=== PATIENT | male | born 1990 | race Caucasian/White ===

== ENCOUNTER 2017-05-28 15:51 | Emergency (ER) | payer OTHER ==
[~2017-05-28] VITALS: Ht 175.3 cm; Wt 84.5 kg
[~2017-05-28 15:51] MED LIST: ALBUAER19 INH; CLIN300C2 PO
[2017-05-28 15:57] VITALS: TEMP 36.8; Ht 175.3 cm; Wt 84.5 kg
[2017-05-28 16:10] VITALS: O2SAT 97
--- NOTE | 2017-05-28 16:15 | EMERGENCY ROOM VISIT NOTE ---
History First contact with patient: 16:00 Chief Complaint: CHEST PAIN Stated Complaint: DULL CHEST PAIN ACROSS ENTIRE CHEST History of Present Illness The patient is a 27 year old male who presents to the Emergency Room with complaints of midsternal chest pain that he describes as a dull, aching sensation that started approximately half hour prior to arrival. He describes it also as a pressure-like sensation. It is worse with deep inspiration. He denies any shortness of breath. No cough, fever or chills. The pain does not radiate anywhere. He has not experienced this pain before. He denies any diaphoresis. The patient does note that his father had a stent placed at a very young age. he denies any long travel. Review of Systems 10 system review performed and negative unless noted in HPI or below Past Medical/Surgical History Medical Problems: (1) No Known Active Medical Problems Family History Father-coronary artery disease Social History Smoking Status: Never Smoker Current/Historical Medications Scheduled Albuterol Hfa (Ventolin Hfa), 2-4 PUFFS INH Q6H Physical Exam Vital Signs Date Time Temp Pulse Resp B/P (MAP) Pulse Ox O2 Delivery O2 Flow Rate FiO2 05/28/17 19:41 76 16 124/78 98 05/28/17 18:51 71 17 05/28/17 18:29 125/76 05/28/17 18:06 71 9 05/28/17 18:00 74 16 125/76 99 Room Air 05/28/17 17:21 78 14 05/28/17 16:36 62 12 05/28/17 16:31 75 05/28/17 16:25 137/71 05/28/17 16:10 98 Room Air 05/28/17 16:10 97 Room Air 05/28/17 15:57 36.8 72 20 128/79 99 Room Air Physical Exam VITALS: Vitals are noted on the nurse's note and reviewed by myself. Vital signs stable. GENERAL: 27-year-old male, in no acute distress, nondiaphoretic, well-developed well-nourished. SKIN: The skin was without rashes, erythema, edema, or bruising. HEAD: Normocephalic atraumatic. NECK: Supple without nuchal rigidity. No JVD. HEART: Regular rate and rhythm without murmurs gallops or rubs. Tenderness to palpation over the mid sternum. LUNGS: Clear to auscultation bilaterally without wheezes, rales or rhonchi. No accessory muscle use. ABDOMEN: Positive bowel sounds x 4.Soft, nontender, without organomegaly. No guarding or rebound tenderness. MUSCULOSKELETAL: No muscle atrophy, erythema, or edema noted. Strength 5/5 throughout. NEURO: Patient was alert and oriented to person place and time. Normal sensation to touch. No focal neurological deficits. Medical Decision & Procedures ER Provider Diagnostic Interpretation: CXR: IMPRESSION: No acute cardiopulmonary process. Laboratory Results 05/28/17 16:30 Red Blood Count 5.04, Mean Corpuscular Volume 85.1, Mean Corpuscular Hemoglobin 30.0, Mean Corpuscular Hemoglobin Concent 35.2, Mean Platelet Volume 9.8, Neutrophils (%) (Auto) 67.6, Lymphocytes (%) (Auto) 19.6, Monocytes (%) (Auto) 9.6, Eosinophils (%) (Auto) 2.7, Basophils (%) (Auto) 0.1, Neutrophils # (Auto) 6.91, Lymphocytes # (Auto) 2.00, Monocytes # (Auto) 0.98, Eosinophils # (Auto) 0.28, Basophils # (Auto) 0.01 05/28/17 16:30 Test 05/28/17 16:30 05/28/17 18:30 White Blood Count 10.22 K/uL (4.8-10.8) Red Blood Count 5.04 M/uL (4.7-6.1) Hemoglobin 15.1 g/dL (14.0-18.0) Hematocrit 42.9 % (42-52) Mean Corpuscular Volume 85.1 fL (80-100) Mean Corpuscular Hemoglobin 30.0 pg (25-34) Mean Corpuscular Hemoglobin Concent 35.2 g/dl (32-36) Platelet Count 249 K/uL (130-400) Mean Platelet Volume 9.8 fL (7.4-10.4) Neutrophils (%) (Auto) 67.6 % Lymphocytes (%) (Auto) 19.6 % Monocytes (%) (Auto) 9.6 % Eosinophils (%) (Auto) 2.7 % Basophils (%) (Auto) 0.1 % Neutrophils # (Auto) 6.91 K/uL (1.4-6.5) Lymphocytes # (Auto) 2.00 K/uL (1.2-3.4) Monocytes # (Auto) 0.98 K/uL (0.11-0.59) Eosinophils # (Auto) 0.28 K/uL (0-0.5) Basophils # (Auto) 0.01 K/uL (0-0.2) RDW Standard Deviation 39.0 fL (36.4-46.3) RDW Coefficient of Variation 12.5 % (11.5-14.5) Immature Granulocyte % (Auto) 0.4 % Immature Granulocyte # (Auto) 0.04 K/uL (0.00-0.02) D-Dimer 310 ug/L FEU (0-500) Anion Gap 6.0 mmol/L (3-11) Est Creatinine Clear Calc Drug Dose 154.8 ml/min Estimated GFR () 149.4 Estimated GFR (Non- 128.9 BUN/Creatinine Ratio 11.4 (10-20) Calcium Level 8.8 mg/dl (8.5-10.1) Total Bilirubin 0.5 mg/dl (0.2-1) Aspartate Amino Transf (AST/SGOT) 19 U/L (15-37) Alanine Aminotransferase (ALT/SGPT) 43 U/L (12-78) Alkaline Phosphatase 84 U/L (45-117) Total Creatine Kinase 68 U/L (39-308) Creatine Kinase MB < 0.5 ng/ml (0.5-3.6) Creatine Kinase MB Ratio (0-3.0) Total Protein 7.6 gm/dl (6.4-8.2) Albumin 4.0 gm/dl (3.4-5.0) Globulin 3.6 gm/dl (2.5-4.0) Albumin/Globulin Ratio 1.1 (0.9-2) Lyme Disease IgG Antibody NEG (NEG) Lyme Disease IgM Antibody NEG (NEG) Troponin I < 0.015 ng/ml (0-0.045) ECG Indication: chest pain Rate (beats per minute): 61 Rhythm: normal sinus Comparison ECG Date: no prior available ED Course Patient was seen and examined Vital signs including blood pressure were reviewed medications list was verified with patient Labs were obtained, and a saline lock was established The patient declined pain medications. Imaging any workup or performed. The patient was reassessed. He was pain-free. A repeat troponin and EKG were performed and reviewed. The findings were discussed the patient. He voiced understanding. I reviewed discharge instructions the patient. They voiced understanding and had no further questions. Medical Decision Differential diagnosis: Acute myocardial infarction, cardiac arrhythmia, anemia , thyroid abnormality, pneumothorax, pneumonia, bronchitis, pericarditis, electrolyte imbalance, Lyme disease, musculoskeletal pain, PE This patient is a 27-year-old male that presents to emergency department with chest pain starting a half hour prior to arrival. Given his age, I had a fairly low suspicion of coronary disease. His father however did have coronary disease at a young age. On exam, the patient did have tenderness over his chest. Otherwise, his exam was benign. His vital signs are stable. EKG shows normal sinus rhythm. No signs of ischemia or infarction. Labs within normal limits. Negative Lyme. Chest x-ray also with no acute abnormalities. I repeated a troponin in addition to an EKG. They were unchanged. I believe the patient's pain is likely musculoskeletal. It dissipated before the patient's discharge. He was advised to follow-up with his primary care physician, or return here with any new or worsening symptoms. This chart was completed in part utilizing [employer] Speech Voice Recognition software. Attempts were made to minimize the grammatical errors, random word insertions, pronoun errors and incomplete sentences. Any formal questions or concerns about the content, text or information contained within the body of this dictation should be directly addressed to the provider for clarification. Impression Primary Impression: Chest pain Departure Information Dispostion Home / Self-Care Condition GOOD Referrals No Doctor, Assigned (PCP) Patient Instructions [facility] Additional Instructions You were evaluated in the emergency department for chest pain. A cardiac workup was performed today. No significant abnormalities were noted. It is recommended that you follow up with a primary care physician within the next 2-3 days. Please return to the emergency department with any returning, new or worsening symptoms.
[2017-05-28] MEDS ORDERED: VNTHFA/IN INH (16:22)
[2017-05-28 16:52] LABS: BASO % 0.1 %; BASO ABS # 0.01 K/uL (0-0.2); COMPLETE YES; EOS % 2.7 %; HEMATOCRIT 42.9 % (42-52); IG% 0.4 %; LYMPH % 19.6 %; MEAN CELL VOLUME 85.1 fL (80-100); MEAN CORPUSCULAR HGB CONC 35.2 g/dl (32-36); MEAN PLATELET VOLUME 9.8 fL (7.4-10.4); MONO % 9.6 %; NEUT % 67.6 %; PLATELET COUNT 249 K/uL (130-400); RED BLOOD COUNT 5.04 M/uL (4.7-6.1); WHITE BLOOD COUNT 10.22 K/uL (4.8-10.8)
--- NOTE | 2017-05-28 16:56 | DIAGNOSTIC IMAGING REPORT ---
CHEST ONE VIEW PORTABLE HISTORY: 27 years-old Male mid sternal cp acute midsternal atypical chest pain COMPARISON: None available TECHNIQUE: Portable upright AP view of the chest FINDINGS: Cardiomediastinal and hilar silhouettes are within normal limits. No pneumothorax, pleural effusion, focal airspace consolidation or overt pulmonary edema. Bones appear grossly intact. There is mild convex right curvature of the midthoracic spine. IMPRESSION: No acute cardiopulmonary process. The above report was generated using voice recognition software. It may contain grammatical, syntax or spelling errors. Electronically signed by: Glen Thompson M.D. 05/28/2017 4:55 PM Dictated Date/Time: 05/28/2017 4:54 PM
[2017-05-28 17:12] LABS: ALT/SGPT 43 U/L (12-78); BLOOD UREA NITROGEN 8 mg/dl (7-18); BUN/CREATININE RATIO 11.4 (10-20); CALCIUM 8.8 mg/dl (8.5-10.1); CARBON DIOXIDE 28 mmol/L (21-32); CHLORIDE 106 mmol/L (98-107); CREATININE 0.73 mg/dl (0.60-1.40); GLUCOSE 104 mg/dl (70-99); POTASSIUM 3.9 mmol/L (3.5-5.1); SODIUM 140 mmol/L (136-145)
[2017-05-28 17:17] LABS: ALB/GLOB RATIO 1.1 (0.9-2); ALKALINE PHOSPHATASE 84 U/L (45-117); AST/SGOT 19 U/L (15-37)
[2017-05-28 18:25] LABS: LYME DISEASE AB IGG NEG (NEG); LYME DISEASE AB IGM NEG (NEG)
[2017-05-28 19:41] VITALS: BP 124/78; PULSE 76; O2SAT 98
== END 2017-05-28 19:42 | disposition home or self-care (01) ==
LOC: C.EDB 15:52 → C.EDC 19:42
DX: R07.9 Chest pain, unspecified (principal)